=== PATIENT | male | born 1995 | race African-American/Black ===

== ENCOUNTER 2024-11-06 16:26 | Emergency (ER) | payer OTHER ==
[~2024-11-06] VITALS: Ht 177.8 cm; Wt 82.0 kg
[2024-11-06 16:30] VITALS: O2SAT 100
[2024-11-06 18:01] VITALS: TEMP 37.00296
[2024-11-06] MEDS: ONDANSETRON HCL 4MG/2ML INJ IV ONE (18:17)
[2024-11-06] MEDS: MORPHINE SULFATE 4 MG/ML INJ (FOR IV/IM USE) IV ONE (18:17)
[2024-11-06 18:36] LABS: DIFFERENTIAL COMMENT 1; HEMATOCRIT. 31.2 % (42.0-52.0); HEMOGLOBIN. 10.3 g/dL (14.0-18.0); MEAN CORPUSCULAR HEMOGLOBIN 28.1 pg (28.0-32.0); MEAN CORPUSCULAR VOLUME 85.1 fL (80.0-94.0); MEAN PLATELET VOLUME 7.3 fl (7.4-10.4); PLATELET 208 x1000/uL (130-400); RED BLOOD CELL COUNT 3.66 mill/uL (4.7-6.1); RED CELL DISTRIBUTION WIDTH 12.3 % (11.6-14.6); WHITE BLOOD COUNT 3.2 x1000/uL (4.5-11.0)
[2024-11-06 18:41] LABS: CHLORIDE 106 mEq/L (98-107); POTASSIUM 4.1 mEq/L (3.5-5.1); SODIUM 138 mEq/L (136-145)
[2024-11-06 18:42] LABS: CARBON DIOXIDE 25 mEq/L (21-32)
[2024-11-06 18:43] LABS: CALCIUM 8.4 mg/dL (8.7-10.4)
[2024-11-06 18:47] LABS: CREATININE 0.8 mg/dL (0.6-1.3); GLUCOSE 93 mg/dL (70-105); UREA NITROGEN BLOOD 10 mg/dL (9-23)
[2024-11-06 18:49] LABS: PLATELET ESTIMATE NORMAL
[2024-11-06] MEDS ORDERED: CIPR750T4 MT (20:18)
[2024-11-06] MEDS ORDERED: HYDR-4001 MT (20:18)
[2024-11-06] MEDS ORDERED: METR-167 MT (20:18)
[2024-11-06] MEDS ORDERED: PHEN51CR24 TP (20:18)
[2024-11-06 21:32] VITALS: BP 115/61; PULSE 66; RESP 16; O2SAT 98
[2024-11-06] MEDS ORDERED: IOHEXOL-300 100 ML BOTTLE ONE (23:24)
== END 2024-11-06 21:35 | disposition home or self-care (01) ==
LOC: ER 16:26
DX: K60.30 Anal fistula, unspecified (principal); K62.89 Other specified diseases of anus and rectum; Z98.890 Other specified postprocedural states
CPT/HCPCS: 99285; 74177; 96374; 96375; 80048; 83690; 85025; 85610; 36415; Q9967; J2405; J2270

== ENCOUNTER 2024-12-09 09:53 | Emergency (ER) | payer OTHER ==
[~2024-12-09] VITALS: Ht 182.9 cm; Wt 65.0 kg
[~2024-12-09 09:53] MED LIST: CIPR750T4 MT; HYDR-4001 MT; METR-167 MT; PHEN51CR24 TP
[2024-12-09 09:54] VITALS: BP 136/92; PULSE 79; RESP 16; TEMP 36.6; O2SAT 100
== END 2024-12-09 12:50 | disposition left against medical advice (07) ==
LOC: ER 09:53
DX: R53.1 Weakness (principal); Z53.21 Procedure and treatment not carried out due to patient leaving prior to being seen by health care provider